=== PATIENT | female | born 1990 | race Caucasian/White ===

== ENCOUNTER 2016-12-08 20:05 | Emergency (ER) | payer MEDICAID | END 2016-12-09 00:16 | disposition home or self-care (01) | DX: N39.0 Urinary tract infection, site not specified (principal); Z87.442 Personal history of urinary calculi; Z88.1 Allergy status to other antibiotic agents; Z88.0 Allergy status to penicillin ==

== ENCOUNTER 2017-01-09 19:27 | Emergency (ER) | payer MEDICAID ==
--- NOTE | 2017-01-10 19:04 | ER ---
ADMIT: 01/09/2017 RM/LOC: ER [facility] MR#: [id number] [address] [address] [facility] [place] [address] [place] [address] Emergency Room Report SEX: F AGE: 26 : 1990 DATE: 01/09/2017 The patient is a 26-year-old female, had lithotripsy on Wednesday, the , followed by stent; currently on Cipro for UTI; complains of persistent pain, nausea, and vomiting. Exam remarkable for nontoxic, afebrile female, minimal distress. Given IV fluids, Zofran, Toradol, Dilaudid. KUB shows stent in place. Urinalysis shows 3+ blood, 3+ leukocyte esterase, 1301 rbc's, 11 wbc's. Normal CBC. The patient was given ertapenem 1 g IV piggyback in department. Continue home medications and follow up with Dr. Hassan as scheduled. Zan Babcock MD/ erick JOB #: [id number] CC: Lamont Nguyen MD, Attending Physician Tiffanie Joseph MD, Family Physician R MD Tiffanie Colindres MD
== END 2017-01-09 23:50 | disposition home or self-care (01) ==
LOC: ER 19:27
DX: N20.1 Calculus of ureter (principal); N30.90 Cystitis, unspecified without hematuria; Z87.442 Personal history of urinary calculi; Z88.0 Allergy status to penicillin; Z88.1 Allergy status to other antibiotic agents; Z79.899 Other long term (current) drug therapy

== ENCOUNTER 2017-01-12 22:20 | Emergency (ER) | payer MEDICAID ==
--- NOTE | 2017-01-14 01:26 | ER ---
ADMIT: 01/12/2017 RM/LOC: ER [facility] MR#: [id number] [address] [address] [facility] [place] [address] [place] [address] Emergency Room Report SEX: F AGE: 26 : 1990 DATE: 01/12/2017 TIME: 2220 hours. Please refer to my T-sheet for complete H and P. Briefly, the patient is a 26-year-old, who actually had lithotripsy recently. She had a stent placed on the and lithotripsy. She has been having pain in her flank ever since. She states that she was in here couple of days ago. Still having pain, comes in for evaluation. PHYSICAL EXAMINATION: VITAL SIGNS: Stable. ABDOMEN: Mild right flank tenderness. Rest of the exam is essentially normal. EMERGENCY DEPARTMENT COURSE: CBC and chemistries normal. Urine normal except 14 white cells, 94 red cells, 3+ leukocyte esterase, 2+ blood. She was given Zofran, Toradol, morphine, a liter of fluid and she was feeling much better. ASSESSMENT: 1. Renal colic. 2. Ureterolithiasis. 3. Renal ureter stent. PLAN: Fluids. Return if worse. Follow up with Dr. Hassan and I gave her script for Edon. Brandyn Branch MD/ erick JOB #: [id number] CC: Brandyn Branch MD, Attending Physician Tiffanie Joseph MD, Family Physician Nelson Hassan MD
== END 2017-01-13 01:08 | disposition home or self-care (01) ==
LOC: ER 22:20
DX: N20.2 Calculus of kidney with calculus of ureter (principal); Z90.49 Acquired absence of other specified parts of digestive tract; Z88.0 Allergy status to penicillin; Z88.1 Allergy status to other antibiotic agents; Z88.8 Allergy status to other drugs, medicaments and biological substances